=== PATIENT | female | born 1995 | race African-American/Black ===

== ENCOUNTER 2021-05-04 10:49 | Emergency (ER) | payer MEDICAID, OTHER ==
[2021-05-04 11:44] LABS: Bilirubin Neg (Negative); Blood, Urine 50 (Negative); Clarity Cloudy (Clear); Glucose, Urine (Dipstick) Normal (Negative); Ketone, Urine Negative (Negative); Leukocyte 500 (Negative); Nitrite Positive (Negative); Protein, Urine (Dipstick) 30 mg/dl (Neg-Trace); Urobilinogen Normal mg/dL (Less than 2)
[2021-05-04 11:47] LABS: Pregnancy Test - Urine (BHCG) Negative (Negative); Pregu Control Background? CLEAR/WHITE (CLR/WHITE); Pregu Control Bar Appear? YES (CONTROL BAR)
[2021-05-04 11:52] LABS: Bacteria/HPF 4+ HPF (None Seen); WBC/HPF Greater than 50 HPF (0-3)
[2021-05-04 11:53] LABS: RBC/HPF 0-3 HPF (0-3)
== END 2021-05-04 13:19 | disposition home or self-care (01) ==
LOC: CSHERS 10:49
DX: N39.0 Urinary tract infection, site not specified (principal)
CPT/HCPCS: 81003; 81015; 81025; 87077; 87086; 87186; 99284

== ENCOUNTER 2021-09-08 14:07 | Emergency (ER) | payer OTHER ==
[2021-09-08] MEDS ORDERED: Ondansetron ODT 4 MG TAB ONE (15:12)
== END 2021-09-08 16:40 | disposition home or self-care (01) ==
LOC: CSHERS 14:07
DX: O21.9 Vomiting of pregnancy, unspecified (principal); Z3A.16 16 weeks gestation of pregnancy
CPT/HCPCS: 99283; Q0162

== ENCOUNTER 2021-11-08 00:27 | Day surgery (SDC) | payer OTHER ==
[2021-11-08 00:53] VITALS: BMI 34.2
[2021-11-08] MEDS ORDERED: hydrALAZINE 20 MG/ML VIAL SLOW IVP PRN (01:32)
[2021-11-08 02:59] LABS: Bilirubin Neg (Negative); Blood, Urine 10 (Negative); Clarity Cloudy (Clear); Glucose, Urine (Dipstick) Normal (Negative); Ketone, Urine Negative (Negative); Leukocyte 500 (Negative); Nitrite Positive (Negative); Protein, Urine (Dipstick) 15 mg/dl (Neg-Trace); Specific Gravity, Urine 1.005 (1.002-1.036)
[2021-11-08 03:21] LABS: Bacteria/HPF 4+ HPF (None Seen); RBC/HPF 0-3 HPF (0-3); WBC/HPF Greater than 50 HPF (0-3)
[2021-11-08] MEDS ORDERED: Fosfomycin 3 GM/Packet PO SCH (04:00)
[2021-11-09 12:03] LABS: Chlamydia by PCR DETECTED (NotDetected); GC by PCR Not Detected (NotDetected)
== END 2021-11-08 04:27 | disposition home or self-care (01) ==
LOC: CSHLD/OP 00:27
PROVIDERS: ATTEND Student in an Organized Health Care Education/Training Program
DX: O46.92 Antepartum hemorrhage, unspecified, second trimester (principal); O23.592 Infection of other part of genital tract in pregnancy, second trimester; O23.42 Unspecified infection of urinary tract in pregnancy, second trimester; N39.0 Urinary tract infection, site not specified; O34.219 Maternal care for unspecified type scar from previous cesarean delivery; Z3A.26 26 weeks gestation of pregnancy
CPT/HCPCS: 81001; 87480; 87491; 87510; 87591; 87660; 99285

== ENCOUNTER 2022-02-03 05:47 | Day surgery (SDC) | payer OTHER ==
[2022-02-03 06:12] VITALS: BMI 34.9
[2022-02-03] MEDS ORDERED: hydrALAZINE 20 MG/ML VIAL SLOW IVP PRN (08:07)
[2022-02-03] MEDS ORDERED: Lactated Ringer's 1,000 ML IV SCH ×2 (08:15)
== END 2022-02-03 10:25 | disposition home or self-care (01) ==
LOC: CSHLD/OP 05:47
PROVIDERS: ATTEND Student in an Organized Health Care Education/Training Program
DX: O47.1 False labor at or after 37 completed weeks of gestation (principal); O23.593 Infection of other part of genital tract in pregnancy, third trimester; B96.89 Other specified bacterial agents as the cause of diseases classified elsewhere; O99.013 Anemia complicating pregnancy, third trimester; D64.9 Anemia, unspecified; O99.213 Obesity complicating pregnancy, third trimester; E66.9 Obesity, unspecified; Z79.899 Other long term (current) drug therapy; Z3A.39 39 weeks gestation of pregnancy
CPT/HCPCS: 96360; 96361; 99283

== ENCOUNTER 2022-02-06 23:29 | Inpatient (IN) | payer OTHER ==
[2022-02-06] MEDS ORDERED: hydrALAZINE 20 MG/ML VIAL SLOW IVP PRN (23:32)
[2022-02-07] MEDS ORDERED: Lactated Ringer's 1,000 ML IV SCH ×3 (00:15→01:00)
[2022-02-07 00:16] LABS: #Eosinphils 0.3 10x3/uL (0.0-0.5); #Monocytes 0.6 10x3/uL (0.0-1.1); #Neutrophils 6.5 10x3/uL (1.5-8.4); %Basophils 0.1 % (0.0-2.0); %Eosinophils 2.8 % (0.0-6.0); %Monocytes 7.1 % (0.0-10.0); %Neutrophils 72.4 % (40.0-75.0); Hemoglobin 11.6 g/dL (12.0-15.5); Mean Corpuscular HGB CONC 32.3 g/dL (32.0-36.0); Mean Corpuscular Hemoglobin 31.2 pg (27.0-33.0); Mean Corpuscular Volume 96.5 fl (81.6-98.3); Mean Platelet Volume 11.2 fl (7.4-10.4); Platelet Count 250 10x3/uL (150-450); RBC Distribution Width 13.4 % (11.5-14.5); Red Blood Cell (RBC) Count 3.72 10x6/uL (3.90-5.03); White Blood Cell (WBC) Count 8.9 10x3/uL (3.5-10.5)
[2022-02-07 00:27] LABS: ALT (SGPT) 16 U/L (8-55); AST (SGOT) 22 U/L (5-34); Albumin 3.5 g/dL (3.5-5.0); Alkaline Phosphatase 147 U/L (40-110); Anion Gap 12 mmol/L (10-20); BUN (Urea Nitrogen) 4 mg/dL (7.0-18.7); Bilirubin, Total 0.5 mg/dL (0.2-1.2); Calc. Creatinine Clearance 0 mL/min (70-130); Calcium 9.4 mg/dL (7.8-10.44); Carbon Dioxide 23 mmol/L (22-29); Chloride 109 mmol/L (98-107); Estimated GFR 126; Globulin 3.2 g/dL (2.4-3.5); Glucose 96 mg/dL (70-105); Protein, Total 6.7 g/dL (6.0-8.3); Sodium 140 mmol/L (136-145)
[2022-02-07] MEDS ORDERED: Famotidine/PF 20 mg/2ml Vial SLOW IVP PRN (00:50)
[2022-02-07] MEDS ORDERED: Promethazine HCl 25 MG/ML VIAL IM PRN ×3 (00:50→04:57)
[2022-02-07] MEDS ORDERED: hydrALAZINE 20 MG/ML VIAL SLOW IVP PRN ×2 (00:50→04:57)
[2022-02-07] MEDS ORDERED: Docusate 100 MG CAP PO PRN (00:50)
[2022-02-07] MEDS ORDERED: Ondansetron PF 4 MG/2 ML Vial IVP PRN ×3 (00:50→04:57)
[2022-02-07] MEDS ORDERED: Bicitra 30 ML UDCUP PO PRN (00:50)
[2022-02-07] MEDS ORDERED: Methylergonovine 0.2 MG/ML VIAL IM PRN ×2 (00:55→04:57)
[2022-02-07] MEDS ORDERED: Misoprostol 200 MCG TAB PR PRN ×2 (00:55→04:57)
[2022-02-07] MEDS ORDERED: Carboprost 250 MCG/ML AMP IM PRN (00:55)
[2022-02-07] MEDS ORDERED: Ibuprofen 800 MG TAB PO PRN (00:55)
[2022-02-07] MEDS ORDERED: CEFAZOLIN 2 GM in Sodium Chloride 0.9% 100 ML IVPB SCH (01:00)
[2022-02-07] MEDS ORDERED: Fentanyl 100 MCG/2 ML VIAL SLOW IVP PRN (01:02)
[2022-02-07] MEDS ORDERED: Promethazine HCl 25 MG SUPP PR PRN (01:02)
[2022-02-07] MEDS ORDERED: L&D-Morphine 4 MG/ML VIAL SLOW IVP PRN (01:02)
[2022-02-07] MEDS ORDERED: Moisturizing Cream (Eucerin) 113 GM JAR TOP PRN (01:02)
[2022-02-07] MEDS ORDERED: diphenhydrAMINE 50 MG/ML VIAL IVP PRN (01:02)
[2022-02-07] MEDS ORDERED: Naloxone HCl 0.4 mg/ml Vial IVP PRN ×2 (01:02)
[2022-02-07] MEDS ORDERED: Naloxone HCl 0.4 mg/ml Vial IV PRN (01:02)
[2022-02-07] MEDS ORDERED: Ondansetron HCl/PF 4 MG/2 ML Vial IVP PRN (01:02)
[2022-02-07] MEDS ORDERED: Meperidine HCl/PF 25 MG/ML VIAL SLOW IVP PRN (01:02)
[2022-02-07] MEDS ORDERED: CEFAZOLIN 2 GM VIAL ONE (01:06)
[2022-02-07 01:08] LABS: Bilirubin Neg (Negative); Blood, Urine 50 (Negative); Clarity Clear (Clear); Glucose, Urine (Dipstick) Normal (Negative); Ketone, Urine Negative (Negative); Leukocyte 25 (Negative); Nitrite Positive (Negative); Protein, Urine (Dipstick) Negative (Neg-Trace); Urobilinogen Normal mg/dL (Less than 2)
[2022-02-07] MEDS ORDERED: Oxytocin 10 UNITS/ML VIAL ONE (01:08)
[2022-02-07] MEDS ORDERED: Dexamethasone 4 mg/ml Vial ONE (01:08)
[2022-02-07] MEDS ORDERED: PHENYLEPHRINE-NS 100 MCG/ML 10 ML SYRINGE ONE ×2 (01:08→01:40)
[2022-02-07] MEDS ORDERED: Morphine PF 10 MG/10 ML VIAL ONE (01:08)
[2022-02-07] MEDS ORDERED: Ondansetron PF 4 MG/2 ML Vial ONE (01:08)
[2022-02-07] MEDS ORDERED: Ketorolac Tromethamine 30 MG/ML VIAL IVP SCH (01:15)
[2022-02-07] MEDS ORDERED: Communication Order-Pharmacy FS SCH (01:15)
[2022-02-07 01:17] LABS: Bacteria/HPF 3+ HPF (None Seen); RBC/HPF 0-3 HPF (0-3); Squamous Epithelial 0-3 HPF (0-3); Transitional Epithelial 0-3 HPF (None Seen)
[2022-02-07 01:41] LABS: Syphilis Antibody Nonreactive (Nonreactive); Syphilis Antibody Index 0.05 S/CO (<1.00 Non-Reactive)
[2022-02-07 01:44] LABS: HBSAg Index 0.23 S/CO (0-0.99); HIV (1/2) Antibody/Antigen Non-Reactive (NonReactive); HIV 1/2 INDEX 0.07 S/CO (<1.00); Hep B Surf Ag Non-Reactive S/CO (NonReactive)
[2022-02-07] MEDS ORDERED: Labetalol HCl 100 MG/20 ML VIAL ONE (02:02)
[2022-02-07 02:08] LABS: SARS-CoV-2 NAA Rapid Test Not Detected (NotDetected)
[2022-02-07 02:45] VITALS: BMI 34.2
[2022-02-07 02:59] LABS: RapidComm Collect By cbn
[2022-02-07] MEDS: Ampicillin 2 GM in Sodium Chloride 0.9% 100 ML SLOW IVP SCH ×4 (03:01→21:19)
[2022-02-07 03:04] LABS: RapidComm Collect By CBN; pH (Cord, venous) 7.303 (7.250-7.350)
[2022-02-07] MEDS: Ketorolac Tromethamine 30 MG/ML VIAL IVP PRN ×2 (04:27→14:23)
[2022-02-07] MEDS: Lactated Ringer's 1,000 ML IV SCH ×3 (05:05→20:30)
[2022-02-07] MEDS: GENTAMICIN SULFATE IVPB SCH (05:39)
[2022-02-07] MEDS: SODIUM CHLORIDE 0.9% IVPB SCH (05:39)
[2022-02-07] MEDS: Docusate 100 MG CAP PO SCH ×2 (08:15→21:18)
[2022-02-07] MEDS: Prenatal Vitamin 1 TAB PO SCH (08:15)
[2022-02-07] MEDS ORDERED: Sodium Chloride 0.9% 100 ML ONE (08:22)
[2022-02-07] MEDS ORDERED: Ampicillin 2 GM VIAL ONE (08:24)
[2022-02-07] MEDS: Ferrous Sulfate 325 MG TAB PO SCH ×2 (09:46→21:22)
[2022-02-07] MEDS ORDERED: HYDROcodone/Acetaminophen 5/325 mg Tablet PO PRN (13:15)
[2022-02-07] MEDS: Simethicone Chewable 80 MG TAB PO PRN (16:11)
[2022-02-07] MEDS ORDERED: diphenhydrAMINE 25 MG CAP PO PRN (16:36)
[2022-02-08] MEDS: HYDROcodone/Acetaminophen 5/325 mg Tablet PO PRN ×2 (00:28→05:12)
[2022-02-08] MEDS ORDERED: Ibuprofen 800 MG TAB PO PRN (01:28)
[2022-02-08] MEDS: Ampicillin 2 GM in Sodium Chloride 0.9% 100 ML SLOW IVP SCH (03:05)
[2022-02-08] MEDS: GENTAMICIN SULFATE IVPB SCH (03:42)
[2022-02-08] MEDS: SODIUM CHLORIDE 0.9% IVPB SCH (03:42)
[2022-02-08] MEDS: Lactated Ringer's 1,000 ML IV SCH ×3 (03:53→19:17)
[2022-02-08] MEDS: Ibuprofen 800 MG TAB PO SCH ×3 (05:12→21:52)
[2022-02-08] MEDS: Simethicone Chewable 80 MG TAB PO PRN (05:13)
[2022-02-08 05:57] LABS: Hemoglobin 9.4 g/dL (12.0-15.5); Mean Corpuscular HGB CONC 33.2 g/dL (32.0-36.0); Mean Corpuscular Hemoglobin 31.2 pg (27.0-33.0); Mean Platelet Volume 10.9 fl (7.4-10.4); Platelet Count 215 10x3/uL (150-450); RBC Distribution Width 13.6 % (11.5-14.5); Red Blood Cell (RBC) Count 3.01 10x6/uL (3.90-5.03); White Blood Cell (WBC) Count 19.1 10x3/uL (3.5-10.5)
[2022-02-08] MEDS: Docusate 100 MG CAP PO SCH ×2 (08:30→21:52)
[2022-02-08] MEDS: Ferrous Sulfate 325 MG TAB PO SCH ×2 (08:30→21:52)
[2022-02-08] MEDS: Prenatal Vitamin 1 TAB PO SCH (08:30)
[2022-02-08] MEDS: Nitrofurantoin Monohyd/M-Cryst 100 MG CAP PO SCH ×2 (08:31→21:52)
[2022-02-08] MEDS ORDERED: Ibuprofen 800 MG TAB PO SCH (22:00)
[2022-02-09] MEDS: Lactated Ringer's 1,000 ML IV SCH ×2 (02:24→13:21)
[2022-02-09] MEDS: HYDROcodone/Acetaminophen 5/325 mg Tablet PO PRN (03:19)
[2022-02-09] MEDS: Ibuprofen 800 MG TAB PO SCH ×2 (05:47→13:21)
[2022-02-09] MEDS: Docusate 100 MG CAP PO SCH (08:53)
[2022-02-09] MEDS: Prenatal Vitamin 1 TAB PO SCH (08:53)
[2022-02-09] MEDS: Nitrofurantoin Monohyd/M-Cryst 100 MG CAP PO SCH (08:53)
[2022-02-09] MEDS: Ferrous Sulfate 325 MG TAB PO SCH (08:53)
[2022-02-09 11:46] VITALS: BP 111/66; TEMP 98.2
== END 2022-02-09 14:10 | disposition home or self-care (01) | DRG 786 ==
LOC: CSHLD/OP 23:29 → CSHLD 02-07 00:51 → CSHPP 02-07 04:56
PROVIDERS: ADMIT Family Medicine; ATTEND Family Medicine
PROC: 10D00Z1 Extraction of Products of Conception, Low, Open Approach (ICD-10-PCS; principal; 2022-02-07)
DX: O99.824 Streptococcus B carrier state complicating childbirth (principal); O41.1030 Infection of amniotic sac and membranes, unspecified, third trimester, not applicable or unspecified; E66.9 Obesity, unspecified; O99.214 Obesity complicating childbirth; O99.02 Anemia complicating childbirth; D64.9 Anemia, unspecified; Z3A.39 39 weeks gestation of pregnancy; Z37.0 Single live birth; Z20.822 Contact with and (suspected) exposure to COVID-19; O34.211 Maternal care for low transverse scar from previous cesarean delivery; Z90.89 Acquired absence of other organs; Z80.3 Family history of malignant neoplasm of breast; O76 Abnormality in fetal heart rate and rhythm complicating labor and delivery; O77.0 Labor and delivery complicated by meconium in amniotic fluid; O86.20 Urinary tract infection following delivery, unspecified
CPT/HCPCS: 36415; 51702; 80053; 81001; 82805; 85025; 85027; 86780; 86850; 86900; 86901; 87077; 87086; 87186; 87205; 87340; 87389; 88307; 99285; J0290; J1100; J1200; J1580; J1885; J2274; J2405; J2590; J3490; J7120

== ENCOUNTER 2022-10-07 20:43 | Emergency (ER) | payer OTHER ==
[2022-10-07 22:00] LABS: #Eosinphils 0.1 10x3/uL (0.0-0.5); #Neutrophils 6.3 10x3/uL (1.5-8.4); %Basophils 0.2 % (0.0-2.0); %Eosinophils 0.8 % (0.0-6.0); %Lymphocytes 12.9 % (18.0-47.0); %Monocytes 11.8 % (0.0-10.0); %Neutrophils 73.7 % (40.0-75.0); Hemoglobin 8.8 g/dL (12.0-15.5); Mean Corpuscular HGB CONC 31.8 g/dL (32.0-36.0); Mean Corpuscular Hemoglobin 29.7 pg (27.0-33.0); Mean Corpuscular Volume 93.6 fl (81.6-98.3); Mean Platelet Volume 11.7 fl (7.4-10.4); Platelet Count 173 10x3/uL (150-450); RBC Distribution Width 13.9 % (11.5-14.5); Red Blood Cell (RBC) Count 2.96 10x6/uL (3.90-5.03); White Blood Cell (WBC) Count 8.5 10x3/uL (3.5-10.5)
[2022-10-07 22:09] LABS: ALT (SGPT) 8 U/L (8-55); AST (SGOT) 15 U/L (5-34); Albumin 3.2 g/dL (3.5-5.0); Alkaline Phosphatase 36 U/L (40-110); Anion Gap 13 mmol/L (10-20); BUN (Urea Nitrogen) 8 mg/dL (7.0-18.7); Bilirubin, Total 0.4 mg/dL (0.2-1.2); Calc. Creatinine Clearance 0 mL/min (70-130); Calcium 7.9 mg/dL (7.8-10.44); Carbon Dioxide 21 mmol/L (22-29); Chloride 107 mmol/L (98-107); Estimated GFR 126; Globulin 2.2 g/dL (2.4-3.5); Glucose 98 mg/dL (70-105); Potassium 3.5 mmol/L (3.5-5.1); Protein, Total 5.4 g/dL (6.0-8.3); Sodium 137 mmol/L (136-145)
[2022-10-07 23:18] LABS: Bilirubin Neg (Negative); Blood, Urine 150 (Negative); Clarity Clear (Clear); Glucose, Urine (Dipstick) Normal (Negative); Ketone, Urine 5 mg/dL (Negative); Leukocyte 25 (Negative); Nitrite Negative (Negative); Protein, Urine (Dipstick) 30 mg/dl (Neg-Trace)
[2022-10-07 23:26] LABS: Bacteria/HPF Rare-Few HPF (None Seen); WBC/HPF 0-3 HPF (0-3)
== END 2022-10-08 00:40 | disposition home or self-care (01) ==
LOC: CSHERS 20:43
DX: O03.9 Complete or unspecified spontaneous abortion without complication (principal)
CPT/HCPCS: 76856; 80053; 81003; 81015; 84702; 85025; 86900; 86901